=== PATIENT | male | born 1925 | race Caucasian/White ===

== ENCOUNTER 2017-01-22 09:47 | Emergency (ER) | payer BC ==
[2017-01-22 10:13] LABS: BASOPHILS 0.7 %; BASOPHILS ABSOLUTE 0.05 10/3/uL (0.0-0.16); EOSINOPHILS 3.3 %; EOSINOPHILS ABSOLUTE 0.23 10/3/uL (0.0-0.53); ER CBC TAT 0 Hrs 03 Mins; HEMATOCRIT 48.4 % (40.0-51.0); HEMOGLOBIN 16.5 g/dL (13.6-17.8); IMMATURE GRANULOCYTES 0.3 %; IMMATURE GRANULOCYTES ABSOLUTE 0.02 10/3/uL (0.0-0.11); LYMPHOCYTES 18.8 %; LYMPHOCYTES ABSOLUTE 1.32 10/3/uL (0.67-4.30); MANUAL DIFF NO %; MEAN CORPUS HGB CONC 34.1 g/dL (32.0-36.0); MEAN CORPUSCULAR HEMOGLOB 31.2 pg (26.0-34.0); MEAN CORPUSCULAR VOLUME 91.5 fL (80-100); MEAN PLATELET VOLUME 9.5 fL (9.2-13.0); MONOCYTES 5.7 %; NEUTROPHILS 71.2 %; NEUTROPHILS ABSOLUTE 4.99 10/3/uL (2.02-8.40); PLATELET COUNT 207 10/3/uL (150-400); RBC DISTRIBUTION WIDTH 14.6 % (12.0-16.0); RED CELL COUNT 5.29 10/6/uL (4.7-6.1)
[2017-01-22 10:21] LABS: INTERNATIONAL NORMAL RATI 1.4 UNITS (-); PARTIAL THROMBO TIME 34.9 SEC (22.5-37.2)
[2017-01-22 10:22] LABS: BILIRUBIN, URINE NEGATIVE (NEG); ER URINALYSIS TAT 0 Hrs 16 Mins; KETONE, URINE TRACE MG/DL (NEG); LEUKOCYTE ESTERASE(NOT OR NEG (NEG); NITRITE (URINE) POS (NEG)
[2017-01-22 10:23] LABS: ASCORBIC ACID (UR NOT ORDER) NEG (NEG); WBC (NOT ORDERED) (RFLEX) 5 (0-5)
[2017-01-22 10:27] LABS: A/G RATIO 1.1 (0.7-1.9); ALBUMIN 3.8 G/DL (3.5-5.0); ALKALINE PHOSPHATASE 110 U/L (45-117); BUN (BLOOD UREA NITROGEN) 21 MG/DL (6-23); CALCIUM, SERUM 9.5 MG/DL (8.5-10.4); CHLORIDE, SERUM 107 MMOL/L (96-112); CO2 (CARBON DIOXIDE) 33 MMOL/L (24-34); GFR AFRICAN AMERICAN 56 ML/MIN (>=60); GFR NON AFRICAN AMERICAN 48 ML/MIN (>=60); GLOBULIN 3.4 G/DL (2.5-4.1); GLUCOSE, SERUM 96 MG/DL (60-99); POTASSIUM, SERUM 4.6 MMOL/L (3.5-5.3); SGOT(AST) 25 U/L (5-40); SGPT(ALT) 32 U/L (5-65); SODIUM, SERUM 143 MMOL/L (135-148); TOTAL BILIRUBIN 1.4 MG/DL (0-1.2); TOTAL PROTEIN 7.2 G/DL (6.0-8.5)
[2017-03-06] MEDS ORDERED: BUM1 PO (09:39)
[2017-03-06] MEDS ORDERED: LOP50 PO (09:40)
[2017-03-06] MEDS ORDERED: ZOCOR10 PO (09:42)
[2017-03-06] MEDS ORDERED: IPRA17AE INH (09:42)
[2017-03-06] MEDS ORDERED: COZAAR100 MG PO (09:44)
[2017-03-06] MEDS ORDERED: ASAB PO (09:44)
[2017-03-06] MEDS ORDERED: IRON PO (09:45)
[2017-03-06] MEDS ORDERED: XARELTO15 MG PO (09:46)
[2017-03-06] MEDS ORDERED: HYDROCHLOROT12.5 MG PO (09:47)
[2017-03-06] MEDS ORDERED: VITC500 PO (09:49)
[2017-03-06] MEDS ORDERED: CENTRUM PO (09:49)
[2017-03-06] MEDS ORDERED: VITAMIN D3 PO (09:50)
== END 2017-01-22 10:25 | disposition home or self-care (01) ==
LOC: ER 09:47
PROVIDERS: Emergency Medicine
DX: N39.0 Urinary tract infection, site not specified (principal); I10 Essential (primary) hypertension; I48.91 Unspecified atrial fibrillation; Z88.0 Allergy status to penicillin; Z88.1 Allergy status to other antibiotic agents; Z88.2 Allergy status to sulfonamides; Z91.041 Radiographic dye allergy status; Z91.040 Latex allergy status; Z88.8 Allergy status to other drugs, medicaments and biological substances
CPT/HCPCS: 80053; 81001; 85025; 85610; 85730; 99283